=== PATIENT | female | born 1995 | race Caucasian/White ===

== ENCOUNTER 2022-06-01 13:44 | Outpatient (CLI) | payer BC, SELFPAY ==
--- NOTE | 2022-06-01 14:04 | US_ITS ---
WS: [id number] LIMITED OBSTETRICAL ULTRASOUND HISTORY: UNSURE OF LMP COMPARISON: None available. Cervix: Not well visualized. HEART: FHR of 153 BPM. measurements: BPD = 2.7 cm = 14w5d HC = 10.8 cm = 15w1d AC = 8.0 cm = 14w3d FL = 1.5 cm = 14w3d AGA by ultrasound: 14w5d SHEREE by ultrasound: 11/25/2022 US/US OB <= 14 weeks fetus [id number] IMPRESSION: 1. Single intrauterine gestation of 14 weeks 5 days with an EDC of 11/25/2022. 2. Normal cardiac activity. 3. Technically very difficult and limited evaluation of the fetus due to early gestational age and maternal body habitus.
== END 2022-06-01 13:45 | disposition home or self-care (01) ==
PROVIDERS: PCP Nurse Practitioner Family; Visit Provider Family Medicine
DX: Z36.87 Encounter for antenatal screening for uncertain dates (principal); Z3A.14 14 weeks gestation of pregnancy
CPT/HCPCS: 76801